=== PATIENT | female | born 1950 ===

== ENCOUNTER 2018-09-23 02:27 | Outpatient (CLI) | payer MEDICARE, BC | END 2018-09-23 23:59 | disposition home or self-care (01) | LOC: DIABETIC 02:27 | PROVIDERS: ATTEND Internal Medicine Endocrinology, Diabetes & Metabolism | DX: E11.69 Type 2 diabetes mellitus with other specified complication (principal); R41.89 Other symptoms and signs involving cognitive functions and awareness | CPT/HCPCS: G0108 ==

== ENCOUNTER 2018-11-01 04:29 | Outpatient (CLI) | payer MEDICARE, BC | END 2018-11-01 23:59 | disposition home or self-care (01) | LOC: DIABETIC 04:29 | PROVIDERS: ATTEND Internal Medicine Endocrinology, Diabetes & Metabolism | DX: E11.65 Type 2 diabetes mellitus with hyperglycemia (principal); Z79.4 Long term (current) use of insulin; Z79.899 Other long term (current) drug therapy | CPT/HCPCS: G0108 ==

== ENCOUNTER 2019-01-31 04:13 | Outpatient (CLI) | payer MEDICARE, BC | END 2019-01-31 23:59 | disposition home or self-care (01) | LOC: DIABETIC 04:13 | PROVIDERS: ATTEND Internal Medicine Endocrinology, Diabetes & Metabolism | DX: E11.65 Type 2 diabetes mellitus with hyperglycemia (principal); Z79.84 Long term (current) use of oral hypoglycemic drugs | CPT/HCPCS: G0108 ==

== ENCOUNTER 2019-03-02 02:06 | Outpatient (CLI) | payer MEDICARE, BC | END 2019-03-02 23:59 | disposition home or self-care (01) | LOC: DIABETIC 02:06 | PROVIDERS: ATTEND Internal Medicine Endocrinology, Diabetes & Metabolism | DX: E11.65 Type 2 diabetes mellitus with hyperglycemia (principal); Z79.84 Long term (current) use of oral hypoglycemic drugs | CPT/HCPCS: G0108 ==